=== PATIENT | male | born 1960 | race Caucasian/White ===

== ENCOUNTER 2024-12-13 09:25 | Day surgery (SDC) | payer MEDICARE, MEDICAID ==
[2024-12-13] VITALS (27 sets, daily range): BP systolic 103–145; BP diastolic 63–88; PULSE 68–87; RESP 11–21; TEMP 97.4–98; O2SAT 94–100
[~2024-12-13] VITALS: Ht 172.7 cm; Wt 86.3 kg
[~2024-12-13 09:25] MED LIST: AMLO10TA13 PO; ASPI-612 PO; BUPR600F2 PO; DICY20TA17 PO; HYDR-3972 PO; LISI20TA28 PO
[2024-12-13] MEDS: ceFAZolin 2gm in dextrose, iso 50 ML IV ONE (10:26)
[2024-12-13] MEDS: famotidine 20mg tablet PO ONE (10:26)
[2024-12-13] MEDS: ringers solution, lacted 1,000 ML IV SCH (10:27)
[2024-12-13] MEDS: HYDROcodone/acetaminophen 10/325mg tab PO ONE (10:51)
[2024-12-13] MEDS ORDERED: enalaprilat 1.25mg/ml 2ml vial IV PRN (11:30)
[2024-12-13] MEDS ORDERED: labetalol 20mg/4ml (5mg/ml) syringe IV PRN (11:30)
[2024-12-13] MEDS ORDERED: proCHLORperazine 10 MG/2 ml inj IV PRN (11:30)
[2024-12-13] MEDS ORDERED: meperidine/PF 25mg/ml syringe IV PRN (11:30)
[2024-12-13] MEDS ORDERED: ringers solution, lacted 1,000 ML IV SCH (11:30)
[2024-12-13] MEDS ORDERED: BUPIVAcaine 2.5mg/ml inj 50ml vial (contains preservative) ONE (12:00)
[2024-12-13] MEDS ORDERED: epiNEPHrine 1 mg/ml inj ONE (12:40)
[2024-12-13] MEDS ORDERED: sevoflurane 250ml liquid IH ONE (13:22)
[2024-12-13] MEDS ORDERED: fentaNYL/PF 50MCG/1 ML 2ML syringe ONE (13:28)
[2024-12-13] MEDS ORDERED: MIDAZolam 1 MG/ML 5ML VIAL ONE (13:28)
[2024-12-13] MEDS ORDERED: propofol inj 20 ML IV ONE (13:46)
[2024-12-13] MEDS ORDERED: LIDOcaine 1%/PF 5ML 10 MG/ML VIAL ONE (13:46)
[2024-12-13] MEDS ORDERED: ROPIVAcaine 0.5% (5mg/ml) 30ml vial ONE (14:02)
[2024-12-13] MEDS ORDERED: ondansetron/PF 4mg/2ml inj ONE (14:11)
[2024-12-13] MEDS ORDERED: ceFAZolin 1000mg inj ONE (14:36)
[2024-12-13] MEDS ORDERED: bisacodyl 10mg suppository rectal RC PRN (16:05)
[2024-12-13] MEDS ORDERED: acetaminophen 325mg tablet PO PRN (16:05)
[2024-12-13] MEDS ORDERED: dicyclomine 10 MG capsule PO PRN (16:05)
[2024-12-13] MEDS ORDERED: naloxone 0.4 mg/ml inj IV PRN (16:05)
[2024-12-13] MEDS ORDERED: magnesium hydroxide 30ml (MOM) UD suspension PO PRN (16:05)
[2024-12-13] MEDS ORDERED: HYDROmorphone inj. 0.5 MG/0.5 ML DISP.SYRIN IV PRN (16:05)
[2024-12-13] MEDS ORDERED: oxyCODONE IR 5mg (immed. release) tablet PO PRN (16:05)
[2024-12-13] MEDS ORDERED: diphenhydrAMINE 25mg capsule PO PRN (16:05)
[2024-12-13] MEDS ORDERED: ondansetron/PF 4mg/2ml inj IV PRN (16:05)
[2024-12-13] MEDS: ondansetron/PF 4mg/2ml inj IV PRN (16:15)
[2024-12-13] MEDS: meperidine/PF 25mg/ml syringe IV PRN ×2 (17:22→18:17)
[2024-12-13] MEDS: potassium cl 20mEq in 1/2 NS 1,000 ML IV SCH (19:51)
[2024-12-13] MEDS: BUPRENORPHINE HCL 600 MCG PO SCH (20:00)
[2024-12-13] MEDS: acetaminophen 325mg tablet PO SCH (20:46)
[2024-12-13] MEDS: sennosides 8.6mg tablet PO SCH (20:46)
[2024-12-13] MEDS: oxyCODONE IR 5mg (immed. release) tablet PO PRN (20:49)
[2024-12-14] VITALS (21 sets, daily range): BP systolic 95–146; BP diastolic 63–88; PULSE 70–90; RESP 14–19; TEMP 97.6–97.9; O2SAT 95–100
[2024-12-14] MEDS: ceFAZolin/D5W- 1GM premix 50 ML IV SCH (00:06)
[2024-12-14] MEDS: diphenhydrAMINE 25mg capsule PO PRN (01:38)
[2024-12-14] MEDS: HYDROmorphone 1 mg/ml syringe IV PRN (03:20)
[2024-12-14] MEDS: aspirin 81mg, enteric-coated 1 TAB TABLET.DR PO SCH (08:00)
[2024-12-14] MEDS: aspirin 325mg tablet PO SCH (08:11)
[2024-12-14] MEDS: amLODIPine 5mg tablet PO SCH (08:14)
[2024-12-14] MEDS: lisinopril 20mg tablet PO SCH (08:15)
[2024-12-14] MEDS ORDERED: MIDAZolam 1 MG/ML 5ML VIAL ONE (08:36)
[2024-12-14] MEDS ORDERED: fentaNYL/PF 50MCG/1 ML 2ML syringe ONE (08:36)
[2024-12-14] MEDS ORDERED: ROPIVAcaine 0.5% (5mg/ml) 30ml vial ONE (08:37)
[2024-12-14] MEDS ORDERED: ROPIVAcaine 0.2% (10 MG/5 ML) BOLUS INJECTION INTERSCALE PRN (09:15)
[2024-12-14] MEDS: ROPIVAcaine 0.2%/PF PUMP/bolus 545 ML INTERSCALE SCH (10:11)
[2024-12-14] MEDS: HYDROcodone/acetaminophen 10/325mg tab PO PRN (13:15)
[2024-12-14] MEDS ORDERED: celeCOXIB 100mg capsule PO SCH (20:00)
[2024-12-15] MEDS ORDERED: acetaminophen 325mg tablet PO PRN (16:05)
== END 2024-12-14 14:50 | disposition home or self-care (01) ==
LOC: PAS 09:25 → ORTHO 4S 16:09 → PAS 12-14 14:50
PROVIDERS: ATTEND Orthopaedic Surgery
DX: M75.122 Complete rotator cuff tear or rupture of left shoulder, not specified as traumatic (principal); M75.52 Bursitis of left shoulder; M65.812 Other synovitis and tenosynovitis, left shoulder; M19.012 Primary osteoarthritis, left shoulder; Z79.899 Other long term (current) drug therapy; G89.18 Other acute postprocedural pain; K21.9 Gastro-esophageal reflux disease without esophagitis; G89.29 Other chronic pain; I10 Essential (primary) hypertension; M19.90 Unspecified osteoarthritis, unspecified site; M17.0 Bilateral primary osteoarthritis of knee; E66.9 Obesity, unspecified; Z68.26 Body mass index [BMI] 26.0-26.9, adult; Z88.6 Allergy status to analgesic agent; Z88.0 Allergy status to penicillin; M19.011 Primary osteoarthritis, right shoulder; Z96.653 Presence of artificial knee joint, bilateral; Z98.890 Other specified postprocedural states
CPT/HCPCS: 23412; 29822; 29826; 64415; 64416; 82948; 97110; 97161; 97530; A4565; A4618; A6402; A7000; C1713; J0171; J0690; J1100; J1171; J2175; J2250; J2405; J2704; J2795; J3010; J3480; J3490; J7120; Q0163; Q4116; Z7506; Z7508; Z7512; Z7610; A6449; G0378